=== PATIENT | female | born 2000 ===

== ENCOUNTER 2019-05-17 17:37 | Inpatient (IN) | payer MEDICAID ==
[2019-05-17] MEDS ORDERED: Butorphanol 1 MG/ML SDV IVPUSH PRN (19:12)
[2019-05-17] MEDS ORDERED: Water For Irrigation,Sterile 1,000 ML Container IRR PRN (19:12)
[2019-05-17] MEDS ORDERED: Carboprost Tromethamine 250 MCG/1 ML Amp IM PRN (19:12)
[2019-05-17] MEDS ORDERED: Sodium Chloride 0.9% 10 ML Syringe FLUSH PRN (19:12)
[2019-05-17] MEDS ORDERED: Ondansetron 4 MG/2 ML SDV IVPUSH PRN (19:12)
[2019-05-17] MEDS ORDERED: Sodium Chloride 0.9% 10 ML SDV IV PRN (19:12)
[2019-05-17] MEDS ORDERED: Lidocaine 1% 50 ML MDV INJECT PRN (19:12)
[2019-05-17] MEDS ORDERED: Terbutaline 1 MG/ML SDV SUBCUT PRN (19:12)
[2019-05-17] MEDS ORDERED: Tranexamic Acid 1,000 MG in Sodium Chloride 0.9% 100 ML IV PRN (19:12)
[2019-05-17] MEDS ORDERED: Methylergonovine 0.2 MG/1 ML Amp IM PRN (19:12)
[2019-05-17] MEDS ORDERED: Ampicillin 2 GM in Sodium Chloride 0.9% 100 ML IV ONE (19:12)
[2019-05-17] MEDS ORDERED: Misoprostol 200 MCG Tab PO PRN (19:12)
[2019-05-17] MEDS ORDERED: Misoprostol 25 MCG (1/4 of 100 MCG) Tab VAG PRN ×2 (19:12)
[2019-05-17] MEDS ORDERED: Nalbuphine 10 MG/1 ML Vial IVPUSH PRN (19:12)
[2019-05-17] MEDS ORDERED: Sodium Chloride 0.9% 2.5 ML Syringe FLUSH PRN (19:12)
[2019-05-17] MEDS ORDERED: Oxytocin/0.9 % Sodium Chloride 30 UNIT/500 ML BAG IV SCH ×2 (19:15)
[2019-05-17 20:14] LABS: BLOOD UREA NITROGEN,BUN 9 mg/dL (7.0-18.0); CARBON DIOXIDE,CO2 21.8 mmol/L (21.0-32.0); CHLORIDE,CL 105 mmol/L (98-107); GLUCOSE RANDOM 99 mg/dL (74-106); SODIUM,NA 139 mmol/L (136-145)
[2019-05-17] MEDS: Lactated Ringers 1,000 ML IV SCH (20:52)
[2019-05-18] MEDS: Ampicillin 1 GM in Sodium Chloride 0.9% 50 ML IV SCH ×7 (00:50→23:10)
--- NOTE | 2019-05-18 07:34 | PCM.PREANE ---
Preanesthetic Assessment - Anesthesia/Transfusion/Family Hx Anesthesia History: No Prior Anesthesia Transfusion History: No Prior Transfusion(s) - Review of Systems General: No Symptoms Pulmonary: No Symptoms Cardiovascular: No Symptoms Gastrointestinal: No Symptoms Neurological: No Symptoms Other: Reports: None - Physical Assessment Height: 5 ft 2 in Weight: 102.058 kg ASA Class: 3 Mental Status: Alert & Oriented x3 Airway Class: Mallampati = 2 Dentition: Reports: Normal Dentition Thyro-Mental Finger Breadths: 3 Mouth Opening Finger Breadths: 3 ROM/Head Extension: Full Lungs: Clear to Auscultation, Normal Respiratory Effort Cardiovascular: Regular Rate, Regular Rhythm - Lab Values: Laboratory Last Values WBC 10.41 K/uL (4.0-11.0) 05/17/19 19:44 RBC 4.58 M/uL (4.30-5.90) 05/17/19 19:44 Hgb 12.3 g/dL (12.0-16.0) 05/17/19 19:44 Hct 37.3 % (36.0-46.0) 05/17/19 19:44 MCV 81.4 fL (80.0-98.0) 05/17/19 19:44 MCH 26.9 pg (27.0-32.0) L 05/17/19 19:44 MCHC 33.0 g/dL (31.0-37.0) 05/17/19 19:44 RDW Std Deviation 45.1 fl (28.0-62.0) 05/17/19 19:44 RDW Coeff of Bel 15 % (11.0-15.0) 05/17/19 19:44 Plt Count 243 K/uL (150-400) 05/17/19 19:44 MPV 11.30 fL (7.40-12.00) 05/17/19 19:44 Nucleated RBC % 0.0 /100WBC 05/17/19 19:44 Nucleated RBCs # 0 K/uL 05/17/19 19:44 Sodium 139 mmol/L (136-145) 05/17/19 19:44 Potassium 4.0 mmol/L (3.5-5.1) 05/17/19 19:44 Chloride 105 mmol/L (98-107) 05/17/19 19:44 Carbon Dioxide 21.8 mmol/L (21.0-32.0) 05/17/19 19:44 BUN 9 mg/dL (7.0-18.0) 05/17/19 19:44 Creatinine 0.7 mg/dL (0.6-1.0) 05/17/19 19:44 Est Cr Clr Drug Dosing 101.39 mL/min 05/17/19 19:44 Estimated GFR (MDRD) > 60.0 ml/min 05/17/19 19:44 Glucose 99 mg/dL (74-106) 05/17/19 19:44 Uric Acid 5.3 mg/dL (2.6-7.2) 05/17/19 19:44 Calcium 9.2 mg/dL (8.5-10.1) 05/17/19 19:44 Total Bilirubin 0.2 mg/dL (0.2-1.0) 05/17/19 19:44 AST 18 IU/L (15-37) 05/17/19 19:44 ALT 23 IU/L (14-63) 05/17/19 19:44 Alkaline Phosphatase 176 U/L (46-116) H 05/17/19 19:44 Total Protein 7.0 g/dL (6.4-8.2) 05/17/19 19:44 Albumin 2.6 g/dL (3.4-5.0) L 05/17/19 19:44 Globulin 4.4 g/dL (2.6-4.0) H 05/17/19 19:44 Albumin/Globulin Ratio 0.6 (0.9-1.6) L 05/17/19 19:44 Ur Collection Duration 24 05/17/19 17:00 Urine Total Volume 900 (800-1800) 05/17/19 17:00 Ur Total Protein Conc 30.8 mg/dL (0-14) H 05/17/19 17:00 Ur Total Protein 24 Hr 277.2 mg/24HRS 05/17/19 17:00 Blood Type O POSITIVE 05/17/19 19:44 Antibody Screen NEGATIVE 05/17/19 19:44 - Allergies Allergies/Adverse Reactions: Allergies Allergy/AdvReac Type Severity Reaction Status Date / Time No Known Allergies Allergy Verified 05/16/19 14:51 - Anesthesia Plan Free Text/Narrative:: Continuous Labor Epidural - Acknowledgements Anesthesia Type Planned: Epidural Pt an Appropriate Candidate for the Planned Anesthesia: Yes Alternatives and Risks of Anesthesia Discussed w Pt/Guardian: Yes Pt/Guardian Understands and Agrees with Anesthesia Plan: Yes PreAnesthesia Questionnaire - Past Health History Medical/Surgical History: Denies Medical/Surgical History HEENT History: Reports: None Cardiovascular History: Reports: Hypertension Other Cardiovascular History: Patient denies HTN prior to Respiratory History: Reports: None Gastrointestinal History: Reports: None Genitourinary History: Reports: None MEDICAL ASSISTANT PER DIEM History: Reports: : 1 Para: 0 LMP (Approximate): Other OB/BYN History: PIH Musculoskeletal History: Reports: None Neurological History: Reports: None Psychiatric History: Reports: None Endocrine/Metabolic History: Reports: None Hematologic History: Reports: None Immunologic History: Reports: None Oncologic (Cancer) History: Reports: None Dermatologic History: Reports: None - Infectious Disease History Infectious Disease History: Reports: Chicken Pox - Past Surgical History Head Surgeries/Procedures: Reports: None - SUBSTANCE USE Smoking Status *Q: Never Smoker Second Hand Smoke Exposure: No Recreational Drug Use History: No - HOME MEDS Home Medications: Home Meds Pnv No.95/Ferrous Fum/Folic AC [ Tablet] 1 tab PO DAILY 05/16/19 [ History] - CURRENT (IN HOUSE) MEDS Current Meds: Current Medications Butorphanol Tartrate (Stadol) 1 mg IVPUSH Q1H PRN PRN Reason: Pain Last Admin: 05/18/19 04:06 Dose: 1 mg Carboprost Tromethamine (Hemabate Ds) 250 mcg IM ASDIRECTED PRN PRN Reason: Post Hemorrhage Tranexamic Acid 1,000 mg/ (Sodium Chloride) 110 mls @ 660 mls/hr IV ONETIME PRN PRN Reason: Bleeding Lactated Ringer's (Ringers, Lactated) 1,000 mls @ 150 mls/hr IV ASDIRECTED ISHMAEL Last Admin: 05/17/19 20:52 Dose: 150 mls/hr Oxytocin/Sodium Chloride (Oxytocin 30 Unit/500 Ml-Ns) 30 unit in 500 mls @ 500 mls/hr IV TITRATE ISHMAEL Oxytocin/Sodium Chloride (Oxytocin 30 Unit/500 Ml-Ns) 30 unit in 500 mls @ 2 mls/hr IV TITRATE ISHMAEL; Protocol Last Titration: 01/29/20 05:26 Dose: 8 munits/min, 8 mls/hr Ampicillin Sodium 1 gm/ Sodium (Chloride) 50 mls @ 100 mls/hr IV Q4H ISHMAEL Last Admin: 05/18/19 05:26 Dose: 100 mls/hr Lidocaine HCl (Xylocaine 1%) 50 ml INJECT ONETIME PRN PRN Reason: Laceration repair Methylergonovine Maleate (Methergine) 0.2 mg IM ASDIRECTED PRN PRN Reason: Post Hemorrhage Misoprostol (Cytotec) 200 mcg PO ONETIME PRN PRN Reason: Post Hemorrhage Misoprostol (Cytotec) 25 mcg VAG ONETIME PRN PRN Reason: Cervical Ripening Last Admin: 05/17/19 21:03 Dose: 25 mcg Misoprostol (Cytotec) 25 mcg VAG Q4H PRN PRN Reason: Cervical Ripening Nalbuphine HCl (Nubain) 10 mg IVPUSH Q1H PRN PRN Reason: Pain (severe 7-10) Ondansetron HCl (Zofran) 4 mg IVPUSH Q6H PRN PRN Reason: Nausea/Vomiting Sodium Chloride (Saline Flush) 10 ml FLUSH ASDIRECTED PRN PRN Reason: Keep Vein Open Sodium Chloride (Saline Flush) 2.5 ml FLUSH ASDIRECTED PRN PRN Reason: Keep Vein Open Sodium Chloride (Normal Saline) 10 ml IV ASDIRECTED PRN PRN Reason: IV Use Sterile Water (Sterile Water For Irrigation) 1,000 ml IRR ASDIRECTED PRN PRN Reason: delivery Terbutaline Sulfate (Brethine) 0.25 mg SUBCUT ASDIRECTED PRN PRN Reason: Tacysystole Discontinued Medications Ampicillin Sodium 2 gm/ Sodium (Chloride) 100 mls @ 200 mls/hr IV ONETIME ONE Stop: 05/17/19 19:41 Last Admin: 05/17/19 20:52 Dose: 200 mls/hr
[2019-05-18] MEDS ORDERED: Bupivicaine/fentaNYL/NS 250 ML ONE (07:37)
[2019-05-18] MEDS: Lactated Ringers 1,000 ML IV SCH ×3 (07:41→23:14)
[2019-05-19] MEDS: Ampicillin 1 GM in Sodium Chloride 0.9% 50 ML IV SCH (03:57)
--- NOTE | 2019-05-19 04:08 | PCM.DEL ---
L & D Note - General Info Date of Service: 05/19/19 Mother's Due Date: 05/29/19 - Delivery Note Labor: Induced by Oxytocin (PROM) Delivery Outcome: Livebirth Delivery Method: Spontaneous Vaginal Delivery-Single Presentation: Left Occiput Anterior (SIA) Nuchal Cord: Reduced Prep: Other Anesthesia Type: None Amniotic Fluid Description: Clear Episiotomy Type: None Laceration: 2nd Degree Suture type: Vicryl Suture size: 3-0 Placenta: Intact, Spontaneous Cord: 3 Vessels Estimated Blood Loss: 800 (methergine and TXA given) Dixie: Suctioned Score 1 min: 7 Score 5 min: 9 Delivery Comments (Free Text/Narrative):: Liveborn male 7/9, weight, weight 3170 grams. Nursery aware of Hepatitis B status. - General Info Date of Service: 05/19/19 - Patient Data Weight - Most Recent: 102.058 kg Med Orders - Current: Current Medications Butorphanol Tartrate (Stadol) 1 mg IVPUSH Q1H PRN PRN Reason: Pain Last Admin: 05/18/19 04:06 Dose: 1 mg Carboprost Tromethamine (Hemabate Ds) 250 mcg IM ASDIRECTED PRN PRN Reason: Post Hemorrhage Tranexamic Acid 1,000 mg/ (Sodium Chloride) 110 mls @ 660 mls/hr IV ONETIME PRN PRN Reason: Bleeding Lactated Ringer's (Ringers, Lactated) 1,000 mls @ 150 mls/hr IV ASDIRECTED ISHMAEL Last Admin: 05/18/19 23:14 Dose: 150 mls/hr Oxytocin/Sodium Chloride (Oxytocin 30 Unit/500 Ml-Ns) 30 unit in 500 mls @ 500 mls/hr IV TITRATE ISHMAEL Oxytocin/Sodium Chloride (Oxytocin 30 Unit/500 Ml-Ns) 30 unit in 500 mls @ 2 mls/hr IV TITRATE ISHMAEL; Protocol Last Titration: 05/19/19 00:46 Dose: 24 munits/min, 24 mls/hr Ampicillin Sodium 1 gm/ Sodium (Chloride) 50 mls @ 100 mls/hr IV Q4H ISHMAEL Last Admin: 05/19/19 03:57 Dose: 100 mls/hr Lidocaine HCl (Xylocaine 1%) 50 ml INJECT ONETIME PRN PRN Reason: Laceration repair Methylergonovine Maleate (Methergine) 0.2 mg IM ASDIRECTED PRN PRN Reason: Post Hemorrhage Misoprostol (Cytotec) 200 mcg PO ONETIME PRN PRN Reason: Post Hemorrhage Misoprostol (Cytotec) 25 mcg VAG ONETIME PRN PRN Reason: Cervical Ripening Last Admin: 05/17/19 21:03 Dose: 25 mcg Misoprostol (Cytotec) 25 mcg VAG Q4H PRN PRN Reason: Cervical Ripening Nalbuphine HCl (Nubain) 10 mg IVPUSH Q1H PRN PRN Reason: Pain (severe 7-10) Ondansetron HCl (Zofran) 4 mg IVPUSH Q6H PRN PRN Reason: Nausea/Vomiting Sodium Chloride (Saline Flush) 10 ml FLUSH ASDIRECTED PRN PRN Reason: Keep Vein Open Sodium Chloride (Saline Flush) 2.5 ml FLUSH ASDIRECTED PRN PRN Reason: Keep Vein Open Sodium Chloride (Normal Saline) 10 ml IV ASDIRECTED PRN PRN Reason: IV Use Sterile Water (Sterile Water For Irrigation) 1,000 ml IRR ASDIRECTED PRN PRN Reason: delivery Terbutaline Sulfate (Brethine) 0.25 mg SUBCUT ASDIRECTED PRN PRN Reason: Tacysystole Discontinued Medications Ampicillin Sodium 2 gm/ Sodium (Chloride) 100 mls @ 200 mls/hr IV ONETIME ONE Stop: 05/17/19 19:41 Last Admin: 05/17/19 20:52 Dose: 200 mls/hr Fentanyl/Bupivacaine HCl (Fentanyl/Bupivacaine/Ns 2 Mcg-0.125% 250 Ml) Confirm Administered Dose 250 mls @ as directed .ROUTE .STK-MED ONE Stop: 05/18/19 07:38 - Problem List & Annotations (1) Vaginal delivery SNOMED Code(s): 364554127 Code(s): O80 - ENCOUNTER FOR FULL-TERM UNCOMPLICATED DELIVERY Status: Acute Current Visit: Yes - Problem List Review Problem List Initiated/Reviewed/Updated: Yes
[2019-05-19] MEDS ORDERED: oxyCODONE 5 MG Tab PO PRN (04:10)
[2019-05-19] MEDS ORDERED: Witch Hazel Medicated Pads 40/Jar TOP PRN (04:10)
[2019-05-19] MEDS ORDERED: Ibuprofen 400 MG Tab PO PRN (04:10)
[2019-05-19] MEDS ORDERED: Misoprostol 200 MCG Tab PO PRN (04:10)
[2019-05-19] MEDS ORDERED: Benzocaine/Menthol 20%-0.5% Spray 78 GM Cannister TOP PRN (04:10)
[2019-05-19] MEDS ORDERED: Bisacodyl 10 MG Supp RECTAL PRN (04:10)
[2019-05-19] MEDS ORDERED: Acetaminophen 500 MG Tab PO PRN (04:10)
[2019-05-19] MEDS ORDERED: Lanolin 100% Cream 7 GM Tube TOP PRN (04:10)
[2019-05-19] MEDS ORDERED: Docusate Sodium 100 MG Cap PO PRN (04:10)
[2019-05-19] MEDS ORDERED: Tranexamic Acid 1,000 MG in Sodium Chloride 0.9% 100 ML IV PRN (04:20)
[2019-05-19] MEDS ORDERED: Labetalol 100 MG/20 ML MDV ONE (04:58)
[2019-05-19] MEDS ORDERED: Sodium Chloride 0.9% 10 ML SDV IV PRN (05:00)
[2019-05-19] MEDS ORDERED: Sodium Chloride 0.9% 2.5 ML Syringe FLUSH PRN (05:00)
[2019-05-19] MEDS ORDERED: Magnesium Sulfate/Water 4 GM in Premix Bag 1 BAG IV ONE (05:00)
[2019-05-19] MEDS ORDERED: Sodium Chloride 0.9% 10 ML Syringe FLUSH PRN (05:00)
[2019-05-19] MEDS ORDERED: Labetalol 100 MG/20 ML MDV IVPUSH PRN (05:00)
[2019-05-19] MEDS ORDERED: Calcium Gluconate 10% 1 GM/10 ML SDV IV PRN (05:00)
--- NOTE | 2019-05-19 05:42 | PCM.DEL ---
L & D Note - General Info Date of Service: 05/19/19 Mother's Due Date: 06/08/19 - Delivery Note Labor: Induced by Oxytocin (PROM) Cervical Ripening Method: Balloon Device Delivery Outcome: Livebirth Delivery Method: Spontaneous Vaginal Delivery-Single Presentation: Left Occiput Anterior (SIA) Nuchal Cord: None Prep: Other Anesthesia Type: Epidural Episiotomy Type: None Laceration: None Placenta: Intact, Spontaneous Cord: 3 Vessels Estimated Blood Loss: 300 (methergine and TXA given) : Suctioned Score 1 min: 7 Score 5 min: 9 Delivery Comments (Free Text/Narrative):: Liveborn male 7/9, weight pending - General Info Date of Service: 05/19/19 - Patient Data Weight - Most Recent: 102.058 kg I&O - Last 24 Hours: Intake & Output 05/18/19 05/18/19 05/19/19 14:59 22:59 06:59 Output Total 1200 Balance -1200 Med Orders - Current: Current Medications Acetaminophen (Tylenol Extra Strength) 500 mg PO Q4H PRN PRN Reason: Pain Acetaminophen (Tylenol Extra Strength) 1,000 mg PO Q4H PRN PRN Reason: Pain Benzocaine/Menthol (Dermoplast Pain Relief 20%-0.5% [place]) 78 gm TOP ASDIRECTED PRN PRN Reason: Perineal Comfort Measure Bisacodyl (Dulcolax) 10 mg RECTAL ONETIME PRN PRN Reason: Constipation Calcium Gluconate (Calcium Gluconate) 1 gm IV ASDIRECTED PRN PRN Reason: respiratory distress Docusate Sodium (Colace) 100 mg PO BID PRN PRN Reason: Constipation Emollient Ointment (Lansinoh Hpa) 0 gm TOP ASDIRECTED PRN PRN Reason: Sore Nipples Tranexamic Acid 1,000 mg/ (Sodium Chloride) 110 mls @ 600 mls/hr IV ONETIME PRN PRN Reason: Bleeding Magnesium Sulfate (Magnesium Sulfate In Water Premix) 20 gm in 500 mls @ 50 mls /hr IV ASDIRECTED ISHMAEL; Protocol Ibuprofen (Motrin) 400 mg PO Q4H PRN PRN Reason: Pain Ibuprofen (Motrin) 800 mg PO Q6H PRN PRN Reason: Pain Labetalol HCl (Normodyne) 10 mg IVPUSH Q10M PRN; Protocol PRN Reason: Hypertension Last Admin: 05/19/19 05:03 Dose: 2 ml Misoprostol (Cytotec) 400 mcg PO ONETIME PRN PRN Reason: excessive vaginal bleeding Oxycodone HCl (Oxycodone) 5 mg PO Q2H PRN PRN Reason: Pain Sodium Chloride (Saline Flush) 10 ml FLUSH ASDIRECTED PRN PRN Reason: Keep Vein Open Sodium Chloride (Saline Flush) 2.5 ml FLUSH ASDIRECTED PRN PRN Reason: Keep Vein Open Sodium Chloride (Normal Saline) 10 ml IV ASDIRECTED PRN PRN Reason: IV Use Witch Fatmata (Tucks) 1 pad TOP ASDIRECTED PRN PRN Reason: comfort care Discontinued Medications Butorphanol Tartrate (Stadol) 1 mg IVPUSH Q1H PRN PRN Reason: Pain Last Admin: 05/18/19 04:06 Dose: 1 mg Carboprost Tromethamine (Hemabate Ds) 250 mcg IM ASDIRECTED PRN PRN Reason: Post Hemorrhage Tranexamic Acid 1,000 mg/ (Sodium Chloride) 110 mls @ 660 mls/hr IV ONETIME PRN PRN Reason: Bleeding Ampicillin Sodium 2 gm/ Sodium (Chloride) 100 mls @ 200 mls/hr IV ONETIME ONE Stop: 05/17/19 19:41 Last Admin: 05/17/19 20:52 Dose: 200 mls/hr Lactated Ringer's (Ringers, Lactated) 1,000 mls @ 150 mls/hr IV ASDIRECTED ISHMAEL Last Admin: 05/18/19 23:14 Dose: 150 mls/hr Oxytocin/Sodium Chloride (Oxytocin 30 Unit/500 Ml-Ns) 30 unit in 500 mls @ 500 mls/hr IV TITRATE ISHMAEL Oxytocin/Sodium Chloride (Oxytocin 30 Unit/500 Ml-Ns) 30 unit in 500 mls @ 2 mls/hr IV TITRATE ISHMAEL; Protocol Last Titration: 05/19/19 00:46 Dose: 24 munits/min, 24 mls/hr Ampicillin Sodium 1 gm/ Sodium (Chloride) 50 mls @ 100 mls/hr IV Q4H ISHMAEL Last Admin: 05/19/19 03:57 Dose: 100 mls/hr Fentanyl/Bupivacaine HCl (Fentanyl/Bupivacaine/Ns 2 Mcg-0.125% 250 Ml) Confirm Administered Dose 250 mls @ as directed .ROUTE .STK-MED ONE Stop: 05/18/19 07:38 Magnesium Sulfate 4 gm/ Premix 100 mls @ 300 mls/hr IV BOLUS ONE Stop: 05/19/19 05:19 Labetalol HCl (Normodyne) Confirm Administered Dose 100 mg .ROUTE .STK-MED ONE Stop: 05/19/19 04:59 Lidocaine HCl (Xylocaine 1%) 50 ml INJECT ONETIME PRN PRN Reason: Laceration repair Methylergonovine Maleate (Methergine) 0.2 mg IM ASDIRECTED PRN PRN Reason: Post Hemorrhage Misoprostol (Cytotec) 200 mcg PO ONETIME PRN PRN Reason: Post Hemorrhage Misoprostol (Cytotec) 25 mcg VAG ONETIME PRN PRN Reason: Cervical Ripening Last Admin: 05/17/19 21:03 Dose: 25 mcg Misoprostol (Cytotec) 25 mcg VAG Q4H PRN PRN Reason: Cervical Ripening Nalbuphine HCl (Nubain) 10 mg IVPUSH Q1H PRN PRN Reason: Pain (severe 7-10) Ondansetron HCl (Zofran) 4 mg IVPUSH Q6H PRN PRN Reason: Nausea/Vomiting Sodium Chloride (Saline Flush) 10 ml FLUSH ASDIRECTED PRN PRN Reason: Keep Vein Open Sodium Chloride (Saline Flush) 2.5 ml FLUSH ASDIRECTED PRN PRN Reason: Keep Vein Open Sodium Chloride (Normal Saline) 10 ml IV ASDIRECTED PRN PRN Reason: IV Use Sterile Water (Sterile Water For Irrigation) 1,000 ml IRR ASDIRECTED PRN PRN Reason: delivery Terbutaline Sulfate (Brethine) 0.25 mg SUBCUT ASDIRECTED PRN PRN Reason: Tacysystole - Problem List & Annotations (1) Vaginal delivery SNOMED Code(s): 293367407 Code(s): O80 - ENCOUNTER FOR FULL-TERM UNCOMPLICATED DELIVERY Status: Acute Current Visit: Yes (2) Pre-eclampsia affecting childbirth SNOMED Code(s): 474346785, 747953315 Code(s): O14.94 - UNSPECIFIED PRE-ECLAMPSIA, COMPLICATING CHILDBIRTH Status : Acute Current Visit: Yes - Problem List Review Problem List Initiated/Reviewed/Updated: Yes - My Orders Last 24 Hours: My Active Orders 05/19/19 04:10 Patient Status [ADT] Routine May Shower [RC] ASDIRECTED Up ad Tiana [RC] ASDIRECTED Vital Signs [RC] PER UNIT ROUTINE Acetaminophen [Tylenol Extra Strength] 1,000 mg PO Q4H PRN Acetaminophen [Tylenol Extra Strength] 500 mg PO Q4H PRN Benzocaine/Menthol [Dermoplast Pain Relief 20%-0.5% [place]] 78 gm TOP ASDIRECTED PRN Docusate Sodium [Colace] 100 mg PO BID PRN Ibuprofen [Motrin] 400 mg PO Q4H PRN Ibuprofen [Motrin] 800 mg PO Q6H PRN Lanolin [Lansinoh HPA] See Dose Instructions TOP ASDIRECTED PRN Witch Fatmata [Tucks] 1 pad TOP ASDIRECTED PRN bisacodyL [Dulcolax] 10 mg RECTAL ONETIME PRN miSOPROStoL [Cytotec] 400 mcg PO ONETIME PRN oxyCODONE 5 mg PO Q2H PRN Assess Lochia [WOMSER] Per Unit Routine Assess Uterine Involution [WOMSER] Per Unit Routine Perineal Care [OM.PC] Per Unit Routine Peripheral IV Discontinue [OM.PC] Routine Resuscitation Status Routine 05/19/19 04:20 Tranexamic Acid [Cyklokapron] 1,000 mg Sodium Chloride 0.9% [Normal Saline] 100 ml IV ONETIME 05/19/19 05:00 Calcium Gluconate 1 gm IV ASDIRECTED PRN Labetalol [Normodyne] 10 mg IVPUSH Q10M PRN Magnesium Sulfate/Water [Magnesium Sulfate in Water Premix] 20 gm in 500 ml IV ASDIRECTED Sodium Chloride 0.9% [Normal Saline] 10 ml IV ASDIRECTED PRN Sodium Chloride 0.9% [Saline Flush] 10 ml FLUSH ASDIRECTED PRN Sodium Chloride 0.9% [Saline Flush] 2.5 ml FLUSH ASDIRECTED PRN 05/19/19 05:01 Bedrest [RC] ASDIRECTED Communication Order [RC] PRN Communication Order [RC] PRN Equipment to Bedside [RC] PRN Height and Weight [RC] DAILY Intake and Output [RC] QSHIFT Notify Provider Status Change [RC] ASDIRECTED Notify Provider [RC] PRN Oxygen Therapy [RC] PRN Peripheral IV Insertion Adult [OM.PC] Routine 05/19/19 05:15 MAGNESIUM [CHEM] Q6H Deep Tendon Reflexes [WOMSER] Q1 05/19/19 05:30 BLOOD GAS ARTERIAL UMBILICAL [BG] Routine BLOOD GAS VENOUS UMBILICAL [BG] Routine 05/19/19 06:15 Deep Tendon Reflexes [WOMSER] Q1 05/19/19 07:15 Deep Tendon Reflexes [WOMSER] Q1 05/19/19 08:15 Deep Tendon Reflexes [WOMSER] Q1 05/19/19 09:15 Deep Tendon Reflexes [WOMSER] Q1 05/19/19 10:15 Deep Tendon Reflexes [WOMSER] Q1 05/19/19 11:15 MAGNESIUM [CHEM] Q6H Deep Tendon Reflexes [WOMSER] Q1 05/19/19 12:15 Deep Tendon Reflexes [WOMSER] Q1 05/19/19 13:15 Deep Tendon Reflexes [WOMSER] [facility] 05/19/19 14:15 Deep Tendon Reflexes [WOMSER] Q1 05/19/19 15:15 Deep Tendon Reflexes [WOMSER] Q1 05/19/19 16:15 Deep Tendon Reflexes [WOMSER] [facility] 05/19/19 17:15 MAGNESIUM [CHEM] Q6H Deep Tendon Reflexes [WOMSER] Q1 05/19/19 18:15 Deep Tendon Reflexes [WOMSER] [facility] 05/19/19 19:15 Deep Tendon Reflexes [WOMSER] [facility] 05/19/19 20:15 Deep Tendon Reflexes [WOMSER] [facility] 05/19/19 21:15 Deep Tendon Reflexes [WOMSER] [facility] 05/19/19 22:15 Deep Tendon Reflexes [WOMSER] [facility] 05/19/19 23:15 MAGNESIUM [CHEM] Q6H Deep Tendon Reflexes [WOMSER] [facility] 05/19/19 Breakfast Fluid Restriction [DIET] Regular Diet [DIET] 05/20/19 00:15 Deep Tendon Reflexes [WOMSER] Q1 05/20/19 01:15 Deep Tendon Reflexes [WOMSER] [facility] 05/20/19 02:15 Deep Tendon Reflexes [WOMSER] [facility] 05/20/19 03:15 Deep Tendon Reflexes [WOMSER] Q1H 05/20/19 04:15 Deep Tendon Reflexes [WOMSER] Q1H 05/20/19 05:11 HEMOGLOBIN/HEMATOCRIT,HH [HEME] Timed 05/20/19 05:15 MAGNESIUM [CHEM] Q6H
--- NOTE | 2019-05-19 06:39 | OR ---
SURGEON: Melissa Moncada M.D. DATE OF PROCEDURE: 05/19/2019 PREOPERATIVE DIAGNOSES: 37-1/7-week intrauterine , preeclampsia, induction of labor, group B strep positive. POSTOPERATIVE DIAGNOSES: 37-1/7-week intrauterine , preeclampsia, induction of labor, group B strep positive. PROCEDURE: Pitocin induction of labor with balloon ripening, term spontaneous vaginal delivery, magnesium seizure prophylaxis. PRIMARY SURGEON: Melissa Moncada M.D. ANESTHESIA: Epidural. ESTIMATED BLOOD LOSS: Less than 300 mL. FINDINGS: Liveborn male, score 7 and 9, weight is pending at the time of dictation. Placenta spontaneous, Schultze intact with 3 vessels. Perineum intact. COMPLICATIONS: None known. DISPOSITION: Mother and baby are in LDR in good condition. BRIEF HISTORY: This is a 19-year-old female. She is a primigravida. Presents at 36-6/7 weeks' gestation with elevated protein-creatinine ratio and elevated blood pressures. She was sent to Labor and Delivery, and the blood pressures were persistently elevated. Decision was made to proceed with induction of labor. DESCRIPTION OF PROCEDURE: A balloon catheter was placed into the cervix with 80 mL of saline attached to an LR bag. This was at approximately 7 a.m. on 05/18/2019. By afternoon, the bag had been expelled. Artificial rupture of membranes was performed. She had received 4 doses of ampicillin by this point. Pitocin had been initiated. She had slow progress beyond this and approximately 20 hours later was fully dilated. She had category 1 with small episodes of category 2 heart tones throughout labor. Blood pressures remained in the 140s-150s/80s. However, when she started pushing, blood pressures became elevated into the low severe range. She received labetalol 10 mg IV and magnesium was started. She pushed over 1 hour time period to a 5+ station, at which time the head was delivered spontaneously and atraumatically over the perineum with support, with subsequent delivery of the 's shoulders and body without any difficulty. The infant was bulb suctioned by nose and mouth, and the was handed to the mother in the presence of the nurse attending delivery. The infant was a liveborn male, score 7 and 9, weighing 3430 g. The cord was doubly clamped and cut. Cord blood was collected for cord ABGs as well as routine cord blood sampling. Pitocin was initiated after delivery of the infant to assist with delivery of the placenta, which was delivered spontaneously. Schultze intact with 3 vessels. Upon inspection of the pelvis and perineum, there were no periurethral, vaginal sidewall, cervical, rectal, or perineal lacerations. EBL was less than 300 mL. There were no known complications. Mother and baby are in LDR in good condition. MAYANK / KAILYN /[id number]
[2019-05-19] MEDS: Magnesium Sulfate/Water 20 GM/500 ML BAG IV SCH ×2 (06:45→17:50)
--- NOTE | 2019-05-19 08:31 | PCM48HPAN ---
Post Anesthesia Note - EVALUATION WITHIN 48HRS OF ANESTHETIC Vital Signs in Normal Range: Yes Patient Participated in Evaluation: Yes Respiratory Function Stable: Yes Airway Patent: Yes Cardiovascular Function Stable: Yes Hydration Status Stable: Yes Pain Control Satisfactory: Yes Nausea and Vomiting Control Satisfactory: Yes Mental Status Recovered: Yes Vital Signs: Last Vital Signs Temp Pulse Resp BP Pulse Ox 98 05/19/19 06:27 - COMMENTS/OBSERVATIONS Free Text/Narrative:: The patient has no complaints at this time. There were no apparent anesthetic complications at this time. Discharge from anesthesia service.
[2019-05-19] MEDS: Ibuprofen 800 MG Tab PO PRN ×2 (08:47→19:47)
--- NOTE | 2019-05-19 17:35 | PCM.SN ---
- Free Text/Narrative Note: Patient seen at bedside. She delivered this AM She denies headache , RUQ pain and blurring vision Magnessium started for elevated BP . VSS: 130s - 140/80s A/P 19 yo s/p PPDO , Superimposed preclampsia Plan Monitor BP Magnessium Checks Magnessium for 24hrs Monitor for signs and symptoms of worsening preclampsia Routine
[2019-05-19] MEDS: Acetaminophen 500 MG Tab PO PRN (17:49)
[2019-05-20] MEDS: Magnesium Sulfate/Water 20 GM/500 ML BAG IV SCH (04:05)
[2019-05-20] MEDS: Ibuprofen 800 MG Tab PO PRN ×3 (05:02→19:18)
--- NOTE | 2019-05-20 18:08 | PCM.PNPP ---
- General Info Date of Service: 05/20/19 Subjective Update: 19yo P1 s/p , severe preclampsia , s/p mag for 24hrs She denies headache , RUQ pain and BV Quinteros removed this am and she voided BP; 120 - 150s/60s - 80s Functional Status: Reports: Pain Controlled, Tolerating Diet, Ambulating, Urinating - Review of Systems General: Reports: No Symptoms HEENT: Reports: No Symptoms Pulmonary: Reports: No Symptoms Cardiovascular: Reports: No Symptoms Gastrointestinal: Reports: No Symptoms Genitourinary: Reports: No Symptoms Musculoskeletal: Reports: No Symptoms Skin: Reports: No Symptoms Neurological: Reports: No Symptoms Psychiatric: Reports: No Symptoms - General Info Date of Service: 05/20/19 - Patient Data Vital Signs - Most Recent: Last Vital Signs Temp 36.4 C 05/20/19 16:00 Pulse 101 H 05/20/19 16:00 Resp 17 05/20/19 16:00 BP 142/83 H 05/20/19 16:00 Pulse Ox 96 05/20/19 16:00 Weight - Most Recent: 102.058 kg I&O - Last 24 Hours: Intake & Output 05/20/19 05/20/19 05/20/19 06:59 14:59 22:59 Intake Total 557 Output Total 1100 Balance -543 Lab Results - Last 24 Hours: Laboratory Results - last 24 hr 05/17/19 05/19/19 05/20/19 Range/Units 19:44 22:41 04:50 Hgb 9.1 L (12.0-16.0) g/dL Hct 28.4 L (36.0-46.0) % Magnesium 5.4 H (1.8-2.4) mg/dL RPR Non-Reac (Non-Reac) 05/20/19 Range/Units 04:50 Hgb (12.0-16.0) g/dL Hct (36.0-46.0) % Magnesium 5.4 H (1.8-2.4) mg/dL RPR (Non-Reac) Med Orders - Current: Current Medications Acetaminophen (Tylenol Extra Strength) 500 mg PO Q4H PRN PRN Reason: Pain Acetaminophen (Tylenol Extra Strength) 1,000 mg PO Q4H PRN PRN Reason: Pain Last Admin: 05/19/19 17:49 Dose: 1,000 mg Benzocaine/Menthol (Dermoplast Pain Relief 20%-0.5% [place]) 78 gm TOP ASDIRECTED PRN PRN Reason: Perineal Comfort Measure Bisacodyl (Dulcolax) 10 mg RECTAL ONETIME PRN PRN Reason: Constipation Docusate Sodium (Colace) 100 mg PO BID PRN PRN Reason: Constipation Emollient Ointment (Lansinoh Hpa) 0 gm TOP ASDIRECTED PRN PRN Reason: Sore Nipples Tranexamic Acid 1,000 mg/ (Sodium Chloride) 110 mls @ 600 mls/hr IV ONETIME PRN PRN Reason: Bleeding Ibuprofen (Motrin) 400 mg PO Q4H PRN PRN Reason: Pain Ibuprofen (Motrin) 800 mg PO Q6H PRN PRN Reason: Pain Last Admin: 05/20/19 11:47 Dose: 800 mg Misoprostol (Cytotec) 400 mcg PO ONETIME PRN PRN Reason: excessive vaginal bleeding Oxycodone HCl (Oxycodone) 5 mg PO Q2H PRN PRN Reason: Pain Sodium Chloride (Saline Flush) 10 ml FLUSH ASDIRECTED PRN PRN Reason: Keep Vein Open Sodium Chloride (Saline Flush) 2.5 ml FLUSH ASDIRECTED PRN PRN Reason: Keep Vein Open Sodium Chloride (Normal Saline) 10 ml IV ASDIRECTED PRN PRN Reason: IV Use Witch Fatmata (Tucks) 1 pad TOP ASDIRECTED PRN PRN Reason: comfort care Discontinued Medications Butorphanol Tartrate (Stadol) 1 mg IVPUSH Q1H PRN PRN Reason: Pain Last Admin: 05/18/19 04:06 Dose: 1 mg Calcium Gluconate (Calcium Gluconate) 1 gm IV ASDIRECTED PRN PRN Reason: respiratory distress Carboprost Tromethamine (Hemabate Ds) 250 mcg IM ASDIRECTED PRN PRN Reason: Post Hemorrhage Tranexamic Acid 1,000 mg/ (Sodium Chloride) 110 mls @ 660 mls/hr IV ONETIME PRN PRN Reason: Bleeding Ampicillin Sodium 2 gm/ Sodium (Chloride) 100 mls @ 200 mls/hr IV ONETIME ONE Stop: 05/17/19 19:41 Last Admin: 05/17/19 20:52 Dose: 200 mls/hr Lactated Ringer's (Ringers, Lactated) 1,000 mls @ 150 mls/hr IV ASDIRECTED ISHMAEL Last Infusion: 05/19/19 05:30 Dose: 25 mls/hr Oxytocin/Sodium Chloride (Oxytocin 30 Unit/500 Ml-Ns) 30 unit in 500 mls @ 500 mls/hr IV TITRATE ISHMAEL Last Infusion: 05/19/19 05:40 Dose: 500 mls/hr Oxytocin/Sodium Chloride (Oxytocin 30 Unit/500 Ml-Ns) 30 unit in 500 mls @ 2 mls/hr IV TITRATE ISHMAEL; Protocol Last Titration: 05/19/19 00:46 Dose: 24 munits/min, 24 mls/hr Ampicillin Sodium 1 gm/ Sodium (Chloride) 50 mls @ 100 mls/hr IV Q4H ISHMAEL Last Admin: 05/19/19 03:57 Dose: 100 mls/hr Fentanyl/Bupivacaine HCl (Fentanyl/Bupivacaine/Ns 2 Mcg-0.125% 250 Ml) Confirm Administered Dose 250 mls @ as directed .ROUTE .STK-MED ONE Stop: 05/18/19 07:38 Magnesium Sulfate 4 gm/ Premix 100 mls @ 300 mls/hr IV BOLUS ONE Stop: 05/19/19 05:19 Last Admin: 05/19/19 06:27 Dose: 300 mls/hr Magnesium Sulfate (Magnesium Sulfate In Water Premix) 20 gm in 500 mls @ 50 mls /hr IV ASDIRECTED ISHMAEL; Protocol Last Admin: 05/20/19 04:05 Dose: 2 gm/hr, 50 mls/hr Labetalol HCl (Normodyne) Confirm Administered Dose 100 mg .ROUTE .STK-MED ONE Stop: 05/19/19 04:59 Labetalol HCl (Normodyne) 10 mg IVPUSH Q10M PRN; Protocol PRN Reason: Hypertension Last Admin: 05/19/19 05:03 Dose: 2 ml Lidocaine HCl (Xylocaine 1%) 50 ml INJECT ONETIME PRN PRN Reason: Laceration repair Methylergonovine Maleate (Methergine) 0.2 mg IM ASDIRECTED PRN PRN Reason: Post Hemorrhage Misoprostol (Cytotec) 200 mcg PO ONETIME PRN PRN Reason: Post Hemorrhage Misoprostol (Cytotec) 25 mcg VAG ONETIME PRN PRN Reason: Cervical Ripening Last Admin: 05/17/19 21:03 Dose: 25 mcg Misoprostol (Cytotec) 25 mcg VAG Q4H PRN PRN Reason: Cervical Ripening Nalbuphine HCl (Nubain) 10 mg IVPUSH Q1H PRN PRN Reason: Pain (severe 7-10) Ondansetron HCl (Zofran) 4 mg IVPUSH Q6H PRN PRN Reason: Nausea/Vomiting Sodium Chloride (Saline Flush) 10 ml FLUSH ASDIRECTED PRN PRN Reason: Keep Vein Open Sodium Chloride (Saline Flush) 2.5 ml FLUSH ASDIRECTED PRN PRN Reason: Keep Vein Open Sodium Chloride (Normal Saline) 10 ml IV ASDIRECTED PRN PRN Reason: IV Use Sterile Water (Sterile Water For Irrigation) 1,000 ml IRR ASDIRECTED PRN PRN Reason: delivery Last Admin: 05/19/19 05:30 Dose: 1,000 ml Terbutaline Sulfate (Brethine) 0.25 mg SUBCUT ASDIRECTED PRN PRN Reason: Tacysystole - Interaction Support Person: Significant Other - Recovery Exam Fundal Tone: Firm Fundal Level: At Umbilicus Fundal Placement: Midline Lochia Amount: Scant Lochia Color: Rubra/Red Perineum Description: Intact, Minimal Bruising/Swelling Episiotomy/Laceration: None Bladder Status: Indwelling Catheter in Place Urinary Elimination: Indwelling Catheter - Exam General: Alert HEENT: Pupils Equal Neck: Supple Lungs: Clear to Auscultation Cardiovascular: Regular Rate, Regular Rhythm GI/Abdominal Exam: Normal Bowel Sounds Extremities: Normal Inspection Psy/Mental Status: Alert - Problem List & Annotations (1) Pre-eclampsia affecting childbirth SNOMED Code(s): 055178731, 401130612 Code(s): O14.94 - UNSPECIFIED PRE-ECLAMPSIA, COMPLICATING CHILDBIRTH Status : Acute Current Visit: Yes - Problem List Review Problem List Initiated/Reviewed/Updated: Yes - Assessment Assessment:: 19yo P1 s/p , severe preclampsia , s/p mag for 24hrs Urine culture - positive for klebsiella , resistant to ampicillin will start Keflex - Plan Plan:: Plan BP monitoring ROutine support Monitor for signs and symptoms of worsenining preclampsia D/C tomorrow with 1 week check up
[2019-05-20] MEDS: Acetaminophen 500 MG Tab PO PRN (19:18)
[2019-05-20] MEDS: Cephalexin 500 MG Cap PO SCH (20:11)
[2019-05-21] MEDS: Cephalexin 500 MG Cap PO SCH ×3 (00:28→11:58)
[2019-05-21] MEDS ORDERED: Labetalol 100 MG Tab PO ONE (00:48)
[2019-05-21] MEDS: Acetaminophen 500 MG Tab PO PRN ×2 (03:46→11:57)
[2019-05-21] MEDS: Ibuprofen 800 MG Tab PO PRN ×2 (03:47→11:56)
[2019-05-21] MEDS ORDERED: Labetalol 100 MG Tab PO SCH (09:00)
--- NOTE | 2019-05-21 09:04 | PCM.PNPP ---
- General Info Date of Service: 05/21/19 Functional Status: Reports: Pain Controlled, Tolerating Diet, Ambulating, Urinating, Other (denies headache or visual changes, strongly wants to go home. ) - Review of Systems General: Reports: No Symptoms HEENT: Reports: No Symptoms Pulmonary: Reports: No Symptoms Cardiovascular: Reports: No Symptoms Gastrointestinal: Reports: No Symptoms Genitourinary: Reports: No Symptoms Musculoskeletal: Reports: No Symptoms Skin: Reports: No Symptoms Neurological: Reports: No Symptoms Psychiatric: Reports: No Symptoms - General Info Date of Service: 05/21/19 - Patient Data Vital Signs - Most Recent: Last Vital Signs Temp 36.2 C 05/21/19 04:47 Pulse 96 05/21/19 04:47 Resp 17 05/21/19 04:47 BP 122/95 H 05/21/19 04:47 Pulse Ox 98 05/21/19 04:47 Weight - Most Recent: 102.058 kg Lab Results - Last 24 Hours: Laboratory Results - last 24 hr 05/17/19 Range/Units 19:44 RPR Non-Reac (Non-Reac) Med Orders - Current: Current Medications Acetaminophen (Tylenol Extra Strength) 500 mg PO Q4H PRN PRN Reason: Pain Acetaminophen (Tylenol Extra Strength) 1,000 mg PO Q4H PRN PRN Reason: Pain Last Admin: 05/21/19 03:46 Dose: 1,000 mg Benzocaine/Menthol (Dermoplast Pain Relief 20%-0.5% [place]) 78 gm TOP ASDIRECTED PRN PRN Reason: Perineal Comfort Measure Bisacodyl (Dulcolax) 10 mg RECTAL ONETIME PRN PRN Reason: Constipation Cephalexin (Keflex) 500 mg PO Q6HR ISHMAEL Last Admin: 05/21/19 05:37 Dose: 500 mg Docusate Sodium (Colace) 100 mg PO BID PRN PRN Reason: Constipation Emollient Ointment (Lansinoh Hpa) 0 gm TOP ASDIRECTED PRN PRN Reason: Sore Nipples Tranexamic Acid 1,000 mg/ (Sodium Chloride) 110 mls @ 600 mls/hr IV ONETIME PRN PRN Reason: Bleeding Ibuprofen (Motrin) 400 mg PO Q4H PRN PRN Reason: Pain Ibuprofen (Motrin) 800 mg PO Q6H PRN PRN Reason: Pain Last Admin: 05/21/19 03:47 Dose: 800 mg Labetalol HCl (Normodyne) 400 mg PO BID ISHMAEL Misoprostol (Cytotec) 400 mcg PO ONETIME PRN PRN Reason: excessive vaginal bleeding Oxycodone HCl (Oxycodone) 5 mg PO Q2H PRN PRN Reason: Pain Sodium Chloride (Saline Flush) 10 ml FLUSH ASDIRECTED PRN PRN Reason: Keep Vein Open Sodium Chloride (Saline Flush) 2.5 ml FLUSH ASDIRECTED PRN PRN Reason: Keep Vein Open Sodium Chloride (Normal Saline) 10 ml IV ASDIRECTED PRN PRN Reason: IV Use Witch Fatmata (Tucks) 1 pad TOP ASDIRECTED PRN PRN Reason: comfort care Discontinued Medications Butorphanol Tartrate (Stadol) 1 mg IVPUSH Q1H PRN PRN Reason: Pain Last Admin: 05/18/19 04:06 Dose: 1 mg Calcium Gluconate (Calcium Gluconate) 1 gm IV ASDIRECTED PRN PRN Reason: respiratory distress Carboprost Tromethamine (Hemabate Ds) 250 mcg IM ASDIRECTED PRN PRN Reason: Post Hemorrhage Tranexamic Acid 1,000 mg/ (Sodium Chloride) 110 mls @ 660 mls/hr IV ONETIME PRN PRN Reason: Bleeding Ampicillin Sodium 2 gm/ Sodium (Chloride) 100 mls @ 200 mls/hr IV ONETIME ONE Stop: 05/17/19 19:41 Last Admin: 05/17/19 20:52 Dose: 200 mls/hr Lactated Ringer's (Ringers, Lactated) 1,000 mls @ 150 mls/hr IV ASDIRECTED ISHMAEL Last Infusion: 05/19/19 05:30 Dose: 25 mls/hr Oxytocin/Sodium Chloride (Oxytocin 30 Unit/500 Ml-Ns) 30 unit in 500 mls @ 500 mls/hr IV TITRATE ISHMAEL Last Infusion: 05/19/19 05:40 Dose: 500 mls/hr Oxytocin/Sodium Chloride (Oxytocin 30 Unit/500 Ml-Ns) 30 unit in 500 mls @ 2 mls/hr IV TITRATE ISHMAEL; Protocol Last Titration: 05/19/19 00:46 Dose: 24 munits/min, 24 mls/hr Ampicillin Sodium 1 gm/ Sodium (Chloride) 50 mls @ 100 mls/hr IV Q4H ISHMAEL Last Admin: 05/19/19 03:57 Dose: 100 mls/hr Fentanyl/Bupivacaine HCl (Fentanyl/Bupivacaine/Ns 2 Mcg-0.125% 250 Ml) Confirm Administered Dose 250 mls @ as directed .ROUTE .[employer]-MED ONE Stop: 05/18/19 07:38 Magnesium Sulfate 4 gm/ Premix 100 mls @ 300 mls/hr IV BOLUS ONE Stop: 05/19/19 05:19 Last Admin: 05/19/19 06:27 Dose: 300 mls/hr Magnesium Sulfate (Magnesium Sulfate In Water Premix) 20 gm in 500 mls @ 50 mls /hr IV ASDIRECTED ISHMAEL; Protocol Last Admin: 05/20/19 04:05 Dose: 2 gm/hr, 50 mls/hr Labetalol HCl (Normodyne) Confirm Administered Dose 100 mg .ROUTE .[employer] ONE Stop: 05/19/19 04:59 Labetalol HCl (Normodyne) 10 mg IVPUSH Q10M PRN; Protocol PRN Reason: Hypertension Last Admin: 05/19/19 05:03 Dose: 2 ml Labetalol HCl (Normodyne) 200 mg PO ONETIME ONE Stop: 05/21/19 00:49 Last Admin: 05/21/19 00:59 Dose: 200 mg Lidocaine HCl (Xylocaine 1%) 50 ml INJECT ONETIME PRN PRN Reason: Laceration repair Methylergonovine Maleate (Methergine) 0.2 mg IM ASDIRECTED PRN PRN Reason: Post Hemorrhage Misoprostol (Cytotec) 200 mcg PO ONETIME PRN PRN Reason: Post Hemorrhage Misoprostol (Cytotec) 25 mcg VAG ONETIME PRN PRN Reason: Cervical Ripening Last Admin: 05/17/19 21:03 Dose: 25 mcg Misoprostol (Cytotec) 25 mcg VAG Q4H PRN PRN Reason: Cervical Ripening Nalbuphine HCl (Nubain) 10 mg IVPUSH Q1H PRN PRN Reason: Pain (severe 7-10) Ondansetron HCl (Zofran) 4 mg IVPUSH Q6H PRN PRN Reason: Nausea/Vomiting Sodium Chloride (Saline Flush) 10 ml FLUSH ASDIRECTED PRN PRN Reason: Keep Vein Open Sodium Chloride (Saline Flush) 2.5 ml FLUSH ASDIRECTED PRN PRN Reason: Keep Vein Open Sodium Chloride (Normal Saline) 10 ml IV ASDIRECTED PRN PRN Reason: IV Use Sterile Water (Sterile Water For Irrigation) 1,000 ml IRR ASDIRECTED PRN PRN Reason: delivery Last Admin: 05/19/19 05:30 Dose: 1,000 ml Terbutaline Sulfate (Brethine) 0.25 mg SUBCUT ASDIRECTED PRN PRN Reason: Tacysystole - Interaction Infant Disposition, : [place] in Room with Family Interaction: Holding Infant Feeding: Bottle Fed Support Person: Significant Other - Recovery Exam Fundal Tone: Firm Fundal Level: 1 Fingerbreadths Below Umbilicus Fundal Placement: Midline Lochia Amount: Scant Lochia Color: Rubra/Red Perineum Description: Intact, Minimal Bruising/Swelling Episiotomy/Laceration: None Bladder Status: Voiding Urinary Elimination: Indwelling Catheter - Exam General: Alert, Oriented HEENT: Pupils Equal Neck: Supple Lungs: Normal Respiratory Effort GI/Abdominal Exam: Soft, No Organomegaly, No Distention Extremities: Normal Range of Motion, Non-Tender. No: No Pedal Edema (2+ equal bilaterally) Neurological: No New Focal Deficit Psy/Mental Status: Alert, Normal Affect, Normal Mood - Problem List & Annotations (1) Vaginal delivery SNOMED Code(s): 751940094 Code(s): O80 - ENCOUNTER FOR FULL-TERM UNCOMPLICATED DELIVERY Status: Acute Current Visit: Yes (2) Pre-eclampsia affecting childbirth SNOMED Code(s): 053420303, 309691246 Code(s): O14.94 - UNSPECIFIED PRE-ECLAMPSIA, COMPLICATING CHILDBIRTH Status : Acute Current Visit: Yes - Problem List Review Problem List Initiated/Reviewed/Updated: Yes - My Orders Last 24 Hours: My Active Orders 05/21/19 09:00 Labetalol [Normodyne] 400 mg PO BID - Assessment Assessment:: PPD#2 after severe pre-eclampsia, complmeted 24 hours of magnesium, required labetalol last night due to severe range blood pressures, still elevated, but improved this am. She strongly wants to go home. She feels elevated BP is from being in the hospital too long. - Plan Plan:: Start oral labetalol 400 mg BID, monitor BP through the day today, if near normal then can discharge with close interval follow up. Discharge instructions reviewed and she expresses understanding.
== END 2019-05-21 13:43 | disposition home or self-care (01) | DRG 807 ==
LOC: MW.OBCHECK 17:37 → MW.OB 17:37 → MW.OBCHECK 18:55 → UNDOADMOB 19:00 → MW.OB 19:00 → OBSVTOIN 05-19 04:10 → MW.OB 05-19 09:00
PROVIDERS: ADMIT Obstetrics & Gynecology; ATTEND Obstetrics & Gynecology
PROC: 10E0XZZ Delivery of Products of Conception, External Approach (ICD-10-PCS; principal; 2019-05-19)
PROC: 10907ZC Drainage of Amniotic Fluid, Therapeutic from Products of Conception, Via Natural or Artificial Opening (ICD-10-PCS; 2019-05-19)
PROC: 3E033VJ Introduction of Other Hormone into Peripheral Vein, Percutaneous Approach (ICD-10-PCS; 2019-05-19)
PROC: 3E0R3BZ Introduction of Anesthetic Agent into Spinal Canal, Percutaneous Approach (ICD-10-PCS; 2019-05-19)
DX: O42.92 Full-term premature rupture of membranes, unspecified as to length of time between rupture and onset of labor (principal); Z37.0 Single live birth; O14.14 Severe pre-eclampsia complicating childbirth; O99.824 Streptococcus B carrier state complicating childbirth; Z3A.37 37 weeks gestation of pregnancy
CPT/HCPCS: 01967; 36415; 51702; 59025; 59200; 59409; 80053; 82803; 83735; 84156; 84550; 85014; 85018; 85027; 86592; 86850; 86900; 86901; A9270-GY; J0290; J0595; J2590; J3010; J3475; J7050; J7120